=== PATIENT | male | born 1995 | race African-American/Black ===

== ENCOUNTER 2016-09-28 18:30 | Observation (INO) ==
[2016-09-28] MEDS ORDERED: NALOXONE 0.4 MG/ML VIAL IV STA (18:52)
[2016-09-28] MEDS ORDERED: SODIUM CHLORIDE 0.9% 1,000 ML IV STA (18:52)
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
[2016-09-28] MEDS ORDERED: NALOXONE 0.4 MG/ML VIAL ONE (19:15)
--- NOTE | 2016-09-28 19:20 | CT Report ---
CT head/brain wo con Indication: Mental status changes. CT BRAIN WITHOUT CONTRAST DLP: 1073 mGy*cm. One or more of the following dose reduction techniques was used: Automated exposure control, adjustment of the mA and/or kV according the patient size, or use of iterative reconstruction techniques. Comparison: 02/15/2015. Date of admission: 09/28/2016. Technique: Axial noncontrast CT images of the brain were obtained. Findings: No acute hemorrhage, mass or mass effect. Ventricles and sulci are appropriate for age. Schneider-white junction is maintained throughout. No focal bone lesions are shown. There is an old right orbit medial wall blowout fracture, new since 2016. Visualized paranasal sinuses are clear. Impression: Negative CT brain without contrast. Old right orbit medial wall blowout fracture. PROCEDURE INTERPRETED AT [facility] DEPARTMENT OF RADIOLOGY Final Report Signed by: Ministerio Wadsworth M.D.
--- NOTE | 2016-09-28 19:21 | XRay Report ---
XR chest 1V portable Indication: Altered mental status. Chest one view: Comparison 02/15/2015. The heart size and mediastinal contour are normal. The lungs and pleural spaces are clear. Bones are unremarkable. Impression: Negative chest. PROCEDURE INTERPRETED AT [facility] DEPARTMENT OF RADIOLOGY Final Report Signed by: Ministerio Wadsworth M.D.
[2016-09-28 19:26] LABS: Basophils # 0.1 10*3/uL (0.0-0.2); Eosinophils # 0.3 10*3/uL (0.0-0.87); Eosinophils % 5.5 % (0.00-10.9); Hematocrit 40.8 VOL% (42.0-52.0); Hemoglobin 14.1 GM/DL (14.0-18.0); Immature Granulocytes % 0.2 %; Immature Granulocytes Absolute 0.01 #; Lymphocytes # 2.2 10*3/uL (1.4-4.0); Lymphocytes % 37.4 % (21.2-54.2); Mean Corpuscular HGB Conc 34.6 GM/DL (32-36); Mean Corpuscular Hemoglobin 30 PG (27-34); Mean Corpuscular Volume 86.1 FL (87-102); Mean Platelet Volume 9.8 FL (9.6-12.0); Monocytes # 0.6 10*3/uL (0.11-0.8); Monocytes % 10.6 % (1.7-12.7); Neutrophils # 2.7 10*3/uL (1.4-7.4); Neutrophils % 45.3 % (38.7-73.9); Platelet Count 239 T/CUMM (130-400); Red Blood Count 4.74 MC/CUMM (3.8-5.5); Red Cell Distribution Width 13.6 % (9.3-17.3); White Blood Count 5.9 T/CUMM (4-12)
[2016-09-28 19:40] LABS: Apearance,Urine CLEAR (Clear); Bilirubin,Urine Negative (Negative); Blood, Urine Negative (Negative); Glucose,Urine (UA) Negative (Negative); Hyaline Casts,Urine 1 /LPF (0-3); Ketones,Urine Negative (Negative); Mucus,Urine Occasional /LPF (Occasional); Nitrite,Urine Negative (Negative); Protein,Urine Negative; RBC,Urine 1 /HPF (0-4); Squamous Epithelial Cell,Urine Occasional /HPF (0-10); Urine Color Yellow (Yellow); Urine Specific Gravity 1.024 (1.001-1.035); Urine Urobilinogen < 2.0 EU/DL (0.2-1.0); WBC,Urine 1 /HPF (0-6)
[2016-09-28 19:47] LABS: Barbiturates Screen,Urine Negative (Negative); Benzodiazepines Screen,Urine Negative (Negative); Cannabinoid Screen,Urine Positive (Negative); Opiate Screen,Urine Negative (Negative); Phencyclidine Screen,Urine Negative (Negative)
[2016-09-28 19:47] LABS: PT Patient Result 10.8 SECS; Partial Thromboplastin Time 28.6 SECS (0-40)
[2016-09-28 19:48] LABS: Alanine Aminotransferase 25 U/L (16-61); Albumin 3.7 G/DL (3.4-5.0); Alkaline Phosphatase 97 U/L (45-117); Aspartate Amino Transferase 18 U/L (0-37); Blood Urea Nitrogen 10 MG/DL (7-18); Calcium 9.2 MG/DL (8.5-10.1); Glucose 82 MG/DL (74-106); Potassium 3.8 MMOL/L (3.5-5.1); Sodium 143 MMOL/L (136-145); Total Protein 7.3 G/DL (6.4-8.3); Troponin I Only < 0.015 NG/ML (0.00-0.045)
[2016-09-28 19:50] LABS: Ammonia 44 UMOL/L (11-32)
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
[2016-09-28] MEDS ORDERED: ONDANSETRON 4 MG/2 ML VIAL IV PRN (23:02)
[2016-09-28] MEDS ORDERED: ACETAMINOPHEN 325 MG TABLET PO PRN (23:02)
[2016-09-28] MEDS ORDERED: ALBUTEROL 2.5 MG/3 ML NEB RESP TX PRN (23:02)
[2016-09-28] MEDS: SODIUM CHLORIDE 0.9% 1,000 ML IV SCH (23:36)
[2016-09-29 06:03] LABS: Basophils # 0.1 10*3/uL (0.0-0.2); Basophils % 1.2 % (0.0-0.8); Eosinophils # 0.4 10*3/uL (0.0-0.87); Eosinophils % 6.2 % (0.00-10.9); Hematocrit 40.8 VOL% (42.0-52.0); Hemoglobin 14.1 GM/DL (14.0-18.0); Immature Granulocytes % 0.3 %; Immature Granulocytes Absolute 0.02 #; Lymphocytes # 1.9 10*3/uL (1.4-4.0); Mean Corpuscular HGB Conc 34.6 GM/DL (32-36); Mean Corpuscular Hemoglobin 30 PG (27-34); Mean Corpuscular Volume 85.7 FL (87-102); Mean Platelet Volume 10.5 FL (9.6-12.0); Monocytes # 0.5 10*3/uL (0.11-0.8); Monocytes % 8.8 % (1.7-12.7); Neutrophils % 51.5 % (38.7-73.9); Platelet Count 247 T/CUMM (130-400); Red Blood Count 4.76 MC/CUMM (3.8-5.5); Red Cell Distribution Width 13.6 % (9.3-17.3); White Blood Count 5.8 T/CUMM (4-12)
[2016-09-29 06:47] LABS: Magnesium 2.3 MG/DL (1.8-2.4); Potassium 3.8 MMOL/L (3.5-5.1)
[2016-09-29 08:29] VITALS: BP 122/70
[2016-09-29] MEDS: SODIUM CHLORIDE 0.9% 1,000 ML IV SCH (08:35)
[2016-09-29] MEDS ORDERED: OLANZapine 5 MG TABLET PO SCH (09:00)
[2016-09-29] MEDS ORDERED: ENOXAPARIN 40 MG/0.4 ML SYRINGE SUBCUT SCH (09:00)
[2016-09-29] MEDS ORDERED: PANTOPRAZOLE 40 MG TABLET PO SCH (09:00)
[2016-09-29] MEDS ORDERED: KETOROLAC 15 MG/1 ML VIAL IV ONE (10:09)
--- NOTE | 2016-09-29 10:12 | Discharge Summary ---
Hospital Course - Hospital Course Hospital Course: Discharge diagnosis: 1. Multiple substance intoxication The patient presented to the hospital after being found in a parking lot. He was admitted to the hospital to "sleep it off." On the morning after admission , he was awake and conversant. He complained of some chest pain. He does not recall any trauma, but was intoxicated at the time. He cleaned off his breakfast tray. He is ready for discharge. Medication reconciliation has been performed. Regular diet. Activity as tolerated. This note was completed using [employer] voice recognition software. There may be engine oiler errors as a result. Discharge Plan - Discharge Data Disposition: Disch To Home/Self Care Condition at Discharge: Stable Discharge Diet: advance to your usual diet Activity: resume usual activities as tolerated Hygiene: no restrictions Weight Bearing at Discharge: full weight bearing Driving: no restrictions - Discharge Medications Continue OLANZapine [Olanzapine Odt] 10 mg PO DAILY Albuterol Inhaler [Proventil Inhaler] 2 puff INH Q6H PRN PRN Reason: Shortness Of Breath/Wheezing Duloxetine HCl [Duloxetine] 60 mg PO DAILY - Follow Up or Referral - Forms/Instructions Exam - Constitutional Vitals: Period Temp Pulse Resp BP Sys/Fenton Pulse Ox Last 24 Hr 97.0 F-98.0 F 53-92 16-22 93-131/53-80 93-100 Vital signs are noted above. Heart is regular with no murmur. Lungs are clear. No rales. Left anterior chest wall is exquisitely tender to palpation. Abdomen is soft with no mass. He is awake and conversant. Discharge Results Labs on day of discharge: Labs from last 24 hours 09/29/16 09/29/16 09/28/16 05:32 05:32 19:36 WBC 5.8 RBC 4.76 Hgb 14.1 Hct 40.8 L MCV 85.7 L MCH 30 MCHC 34.6 RDW 13.6 Plt Count 247 MPV 10.5 Neut % (Auto) 51.5 Lymph % (Auto) 32.0 [place] % (Auto) 8.8 Eos % (Auto) 6.2 Baso % (Auto) 1.2 H Neut # (Auto) 3.0 Lymph # (Auto) 1.9 [place] # (Auto) 0.5 Eos # (Auto) 0.4 Baso # (Auto) 0.1 Immature Gran % 0.3 Nucleated RBC % 0.0 Immature Gran # 0.02 Nucleated RBCs # 0.00 Immature Plt Fraction 0.0 INR PT Patient/Control Mix Circ Anticoag PTT Sodium 143 Potassium 3.8 Chloride 109 H Carbon Dioxide 28 Anion Gap 9.8 BUN 7 Creatinine 0.80 GFR Calculation 144 BUN/Creatinine Ratio 8.00 Glucose 82 Calculated Osmolality 281.0 Calcium 9.0 Magnesium 2.3 Total Bilirubin AST ALT Alkaline Phosphatase Ammonia Troponin I Total Protein Albumin Globulin Albumin/Globulin Ratio Urine Color Urine Appearance Urine pH Ur Specific [place] Urine Protein Urine Glucose (UA) Urine Ketones Urine Blood Urine Nitrate Urine Bilirubin Urine Urobilinogen Urine Leukocytes Urine RBC Urine WBC Ur Squamous Epith Cells Hyaline Casts Urine Mucus Ur Culture Indicated? Urine Opiates Screen Negative Acetaminophen Ur Barbiturates Screen Negative Ur Phencyclidine Scrn Negative U Amphetamine/Methamph Positive H U Benzodiazepines Scrn Negative U Cocaine Metab Screen Negative U Cannabinoids Screen Positive H Serum Alcohol 09/28/16 09/28/16 09/28/16 19:36 19:15 19:15 WBC RBC Hgb Hct MCV MCH MCHC RDW Plt Count MPV Neut % (Auto) Lymph % (Auto) [place] % (Auto) Eos % (Auto) Baso % (Auto) Neut # (Auto) Lymph # (Auto) [place] # (Auto) Eos # (Auto) Baso # (Auto) Immature Gran % Nucleated RBC % Immature Gran # Nucleated RBCs # Immature Plt Fraction INR PT Patient/Control Mix Circ Anticoag PTT Sodium 143 Potassium 3.8 Chloride 108 H Carbon Dioxide 29 Anion Gap 9.8 BUN 10 Creatinine 0.80 GFR Calculation 144 BUN/Creatinine Ratio 12.00 Glucose 82 Calculated Osmolality 282.0 Calcium 9.2 Magnesium Total Bilirubin 0.50 AST 18 ALT 25 Alkaline Phosphatase 97 Ammonia 44 H Troponin I < 0.015 Total Protein 7.3 Albumin 3.7 Globulin 3.6 H Albumin/Globulin Ratio 1.0 L Urine Color Yellow Urine Appearance Clear Urine pH 5.0 Ur Specific [place] 1.024 Urine Protein Negative Urine Glucose (UA) Negative Urine Ketones Negative Urine Blood Negative Urine Nitrate Negative Urine Bilirubin Negative Urine Urobilinogen < 2.0 H Urine Leukocytes Negative Urine RBC 1 Urine WBC 1 Ur Squamous Epith Cells Occasional Hyaline Casts 1 Urine Mucus Occasional Ur Culture Indicated? Not indicated Urine Opiates Screen Acetaminophen < 2.0 L Ur Barbiturates Screen Ur Phencyclidine Scrn U Amphetamine/Methamph U Benzodiazepines Scrn U Cocaine Metab Screen U Cannabinoids Screen Serum Alcohol < 15 L 09/28/16 09/28/16 19:15 19:15 WBC 5.9 RBC 4.74 Hgb 14.1 Hct 40.8 L MCV 86.1 L MCH 30 MCHC 34.6 RDW 13.6 Plt Count 239 MPV 9.8 Neut % (Auto) 45.3 Lymph % (Auto) 37.4 [place] % (Auto) 10.6 Eos % (Auto) 5.5 Baso % (Auto) 1.0 H Neut # (Auto) 2.7 Lymph # (Auto) 2.2 [place] # (Auto) 0.6 Eos # (Auto) 0.3 Baso # (Auto) 0.1 Immature Gran % 0.2 Nucleated RBC % 0.0 Immature Gran # 0.01 Nucleated RBCs # 0.00 Immature Plt Fraction 0.0 INR 1.0 PT Patient/Control Mix 10.8 Circ Anticoag PTT 28.6 Sodium Potassium Chloride Carbon Dioxide Anion Gap BUN Creatinine GFR Calculation BUN/Creatinine Ratio Glucose Calculated Osmolality Calcium Magnesium Total Bilirubin AST ALT Alkaline Phosphatase Ammonia Troponin I Total Protein Albumin Globulin Albumin/Globulin Ratio Urine Color Urine Appearance Urine pH Ur Specific [place] Urine Protein Urine Glucose (UA) Urine Ketones Urine Blood Urine Nitrate Urine Bilirubin Urine Urobilinogen Urine Leukocytes Urine RBC Urine WBC Ur Squamous Epith Cells Hyaline Casts Urine Mucus Ur Culture Indicated? Urine Opiates Screen Acetaminophen Ur Barbiturates Screen Ur Phencyclidine Scrn U Amphetamine/Methamph U Benzodiazepines Scrn U Cocaine Metab Screen U Cannabinoids Screen Serum Alcohol DS: Provider Date of admission: 09/28/16 20:37 Primary care physician: . No PCP Attending physician on admission: José Luis Boateng MD Consults: 09/29/16 01:48 Consult to Dietitian [CONS] Routine Reason for Dietitian: Dietary Consult Consult Comment: Reportedly homeless per ER staff 09/29/16 03:59 Consult to Dietitian [CONS] Routine Reason for Dietitian: Dietary Consult Discharging clinician: Bal Perez MD Expected date of discharge: 09/29/16
== END 2016-09-29 11:40 | disposition home or self-care (01) ==
LOC: EDUNIT# → EDBD → N.ED 18:30 → N.EDINP 18:30 → SUATTDRO 20:37 → N.4E 21:39
PROVIDERS: ADMIT Family Medicine; ATTEND Internal Medicine Geriatric Medicine

== ENCOUNTER 2016-10-27 01:54 | Observation (INO) ==
[2016-10-27] MEDS ORDERED: AMMONIA INHALANT 1 EACH AMP INH ONE (02:06)
[2016-10-27] MEDS ORDERED: ALBUTEROL NEB SOLN 5 MG/ML 20 ML/BOTTLE CONT NEB STA (02:11)
[2016-10-27] MEDS ORDERED: SODIUM CHLORIDE 0.9% 1,000 ML IV STA (02:11)
[2016-10-27] MEDS ORDERED: methylPREDNISolone SOD SUC 125 MG/2 ML VIAL IV STA (02:11)
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
[2016-10-27 02:54] LABS: Basophils # 0.1 10*3/uL (0.0-0.2); Basophils % 0.8 % (0.0-0.8); Eosinophils # 0.5 10*3/uL (0.0-0.87); Eosinophils % 7.6 % (0.00-10.9); Hematocrit 41.2 VOL% (42.0-52.0); Hemoglobin 14.7 GM/DL (14.0-18.0); Immature Granulocytes % 0.3 %; Immature Granulocytes Absolute 0.02 #; Lymphocytes % 30.3 % (21.2-54.2); Mean Corpuscular HGB Conc 35.7 GM/DL (32-36); Mean Corpuscular Hemoglobin 30 PG (27-34); Mean Corpuscular Volume 83.6 FL (87-102); Mean Platelet Volume 10.8 FL (9.6-12.0); Monocytes # 0.6 10*3/uL (0.11-0.8); Monocytes % 9.6 % (1.7-12.7); Neutrophils # 3.4 10*3/uL (1.4-7.4); Neutrophils % 51.4 % (38.7-73.9); Platelet Count 272 T/CUMM (130-400); Red Blood Count 4.93 MC/CUMM (3.8-5.5); Red Cell Distribution Width 13.4 % (9.3-17.3); White Blood Count 6.6 T/CUMM (4-12)
[2016-10-27 02:58] LABS: Apearance,Urine CLEAR (Clear); Bilirubin,Urine Negative (Negative); Blood, Urine Negative (Negative); Glucose,Urine (UA) Negative (Negative); Ketones,Urine 5 mg/dL (Negative); Mucus,Urine Occasional /LPF (Occasional); Nitrite,Urine Negative (Negative); Protein,Urine Negative; RBC,Urine 2 /HPF (0-4); Urine Color Yellow (Yellow); Urine Specific Gravity 1.032 (1.001-1.035); WBC,Urine 1 /HPF (0-6)
[2016-10-27 02:59] LABS: Barbiturates Screen,Urine Negative (Negative); Benzodiazepines Screen,Urine Negative (Negative); Cannabinoid Screen,Urine Positive (Negative); Opiate Screen,Urine Negative (Negative); Phencyclidine Screen,Urine Negative (Negative)
[2016-10-27 03:00] LABS: Ammonia 84 UMOL/L (11-32)
[2016-10-27 03:06] LABS: Alanine Aminotransferase 57 U/L (16-61); Albumin 3.6 G/DL (3.4-5.0); Alkaline Phosphatase 131 U/L (45-117); Aspartate Amino Transferase 46 U/L (0-37); Blood Urea Nitrogen 9 MG/DL (7-18); CKMB % 1.2 %; Calcium 9.1 MG/DL (8.5-10.1); Glucose 162 MG/DL (74-106); Magnesium 2.3 MG/DL (1.8-2.4); Osmolality,Calculated 277.7 MOS/KG (273-304); Potassium 3.4 MMOL/L (3.5-5.1); Sodium 138 MMOL/L (136-145); Total Protein 7.6 G/DL (6.4-8.3); Troponin I Only < 0.015 NG/ML (0.00-0.045)
[2016-10-27] MEDS ORDERED: ONDANSETRON 4 MG/2 ML VIAL IV PRN (03:52)
--- NOTE | 2016-10-27 03:52 | EKG Report ---
Stationary ECG Study [facility] ER Test Date: 10/27/2016 3:51:14 AM Pat Name: BARBARA JANE Department: Room: Gender: M Director Consumer Affairs: : 1995 Requested by: Colin Shine Order Number: [id number] Reading MD: SIVA MCMAHON Intervals [place] Rate: 83 P: 54 MN: 154 QRS: 68 QRSD: 114 T: 80 QT: 390 QTc: 430 Interpretive Statements SINUS RHYTHM WITH SINUS ARRHYTHMIA at 83 bpm INCOMPLETE RIGHT BUNDLE BRANCH BLOCK NONSPECIFIC ST ELEVATION Electronically Signed On 10-30-16 12:01:52 CDT by SIVA MCMAHON [email or web address]
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
[2016-10-27] MEDS: SODIUM CHLORIDE 0.9% 1,000 ML IV SCH ×2 (06:35→16:48)
--- NOTE | 2016-10-27 07:30 | CT Report ---
CT head/brain wo con Indication: Altered mental status Comparison: CT brain dated September 28, 2016 Technique: Multiple axial tomographic images of the brain were obtained without the use of intravenous contrast. Findings: Midline structures are nondisplaced. There is no convincing evidence of acute intracranial hemorrhage . No convincing evidence of hydrocephalus. Old defect involving the medial wall the right orbit. The visualized paranasal sinuses and bilateral mastoid air cells are predominantly clear. IMPRESSION: No acute intracranial abnormality demonstrated. The CT exam was performed using one or more of the following dose reduction techniques: Automated exposure control, adjustment of the mA and/or kV according to patient size, or use of iterative reconstruction technique. PROCEDURE INTERPRETED AT [facility] DEPARTMENT OF RADIOLOGY Final Report Signed by: Dr Bassem Jaramillo
--- NOTE | 2016-10-27 07:59 | XRay Report ---
XR chest 1V portable Indication: Cough, wheezing Comparison: Chest x-ray dated September 28, 2016 Technique: Single frontal view of the chest. Findings: Heart size within normal limits. No focal consolidation, pleural effusion, or pneumothorax. Visualized osseous and surrounding soft tissue structures demonstrate no acute abnormality. IMPRESSION: No acute cardiopulmonary process demonstrated. PROCEDURE INTERPRETED AT [facility] DEPARTMENT OF RADIOLOGY Final Report Signed by: Dr Bassem Jaramillo
[2016-10-27 08:42] LABS: Albumin 3.2 G/DL (3.4-5.0); Bilirubin,Total 0.5 MG/DL (0.2-1.0); Calcium 8.7 MG/DL (8.5-10.1); Osmolality,Calculated 279.4 MOS/KG (273-304); Potassium 3.1 MMOL/L (3.5-5.1); Total Protein 6.8 G/DL (6.4-8.3)
[2016-10-27] MEDS: OLANZapine 5 MG TABLET PO SCH (10:11)
[2016-10-27] MEDS: PANTOPRAZOLE 40 MG TABLET PO SCH (10:11)
[2016-10-27] MEDS: ENOXAPARIN 40 MG/0.4 ML SYRINGE SUBCUT SCH (10:11)
--- NOTE | 2016-10-27 17:50 | Hospitalist Progress Note ---
Hospitalist: Subjective Interval history: Patient with history of abuse admitted with decreased mentation. He is drowsy but arousable. Continue to monitor. Exam - Constitutional Vitals: Period Temp Pulse Resp BP Sys/Fenton Pulse Ox Last 24 Hr 97.1 F-98.7 F 72-95 14-21 109-162/39-75 91-100 Results - Labs CBC & BMP: 10/27/16 02:18 10/27/16 07:17 Quality Measures - Stroke Symptom Onset Unknown: No
[2016-10-28] MEDS: SODIUM CHLORIDE 0.9% 1,000 ML IV SCH (04:30)
[2016-10-28] MEDS: ENOXAPARIN 40 MG/0.4 ML SYRINGE SUBCUT SCH (09:35)
[2016-10-28] MEDS: PANTOPRAZOLE 40 MG TABLET PO SCH (09:35)
[2016-10-28] MEDS: OLANZapine 5 MG TABLET PO SCH (09:35)
[2016-10-28] MEDS ORDERED: POTASSIUM CHLORIDE 20 MEQ TABLET PO ONE (09:42)
--- NOTE | 2016-10-28 09:42 | Discharge Summary ---
Hospital Course - Hospital Course Hospital Course: This is a 21-year-old male that presented to the ED at [facility] on the morning of October 27, 2016 for the evaluation of altered mental status. The patient has a medical history significant for anxiety, schizophrenia, polysubstance abuse, and asthma. No surgical history was provided at the time of ED presentation. Apparently, the patient was observed lying in the parking lot at the local [facility]. The police were summoned to investigate the patient's situation The police proceeded to notify EMS for further evaluation. The patient was subsequently transported to [facility] for further evaluation. Patient was assessed at the time of ED presentation. At the time of ED presentation, the patient was grossly altered and only respond to painful stimulation. In addition, the patient was noted to have abnormal movements at the time of arrival. Labs were obtained which were significant for hematocrit 41.2, potassium 3.4, glucose 162, AST 46, alkaline phosphatase 131, ammonia level 84, total creatinine kinase 560, and ammonia at 84. Urine toxicology was positive for cannabinoids and methamphetamines. Chest x-ray was essentially unremarkable for any acute cardiopulmonary process. CT head was unremarkable for the presence of any acute intracranial abnormalities. The patient was subsequently admitted to the hospitalist service for continuation of care The patient was aggressively rehydrated and electrolyte deficits were corrected. The patient's condition slowly improved. The patient's condition is stable. He has not experienced any significant overnight events. Today, we feel that he is indeed appropriate for discharge to follow-up with his primary care physician as indicated. In addition, we spoke with the patient in great detail regarding the merits of refraining from illicit drug use. Patient verbalizes understanding of instructions however reports no immediate plans to refrain from these dangerous activities. - Time spent with patient Time with patient DS: Less than 30 minutes Diagnosis - Discharge Diagnosis (1) Altered mental status Status: Resolved (2) Decreased level of consciousness Status: Resolved (3) Intoxication with cannabis Status: Resolved Specialty Discharge - Follow Up or Referrals - Speciality Discharge Instructions Hospitalist Instructions: The patient is instructed to follow-up with his primary care physician in 5-7 days after discharge. The patient has been instructed to refrain from illicit drug use. Discharge Plan - Discharge Data Disposition: Disch To Home/Self Care Condition at Discharge: Stable Discharge Diet: advance to your usual diet Activity: resume usual activities as tolerated, other (Refrain from illicit drug use) Hygiene: no restrictions Weight Bearing at Discharge: full weight bearing Driving: no restrictions Contact your physician if you experience:: fever over 101, Difficulty voiding, Redness or swelling, Nausea/Vomiting, Shortness of breath, Bleeding - Discharge Medications New OLANZapine TAB [ZyPREXA Tab] 10 mg PO DAILY #30 tablet Continue Duloxetine HCl [Duloxetine] 60 mg PO DAILY #30 OLANZapine [Olanzapine Odt] 10 mg PO DAILY #30 Albuterol Inhaler [Proventil Inhaler] 2 puff INH Q6H PRN #1 PRN Reason: Shortness Of Breath/Wheezing - Follow Up or Referral - Forms/Instructions Exam - Constitutional Vitals: Period Temp Pulse Resp BP Sys/Fenton Pulse Ox Last 24 Hr 97.2 F-98.3 F 57-90 14-22 114-142/53-77 18-100 General appearance: normal weight, no acute distress, disheveled - Head Head exam: Present: normal inspection, normocephalic - Eye Eye exam: Present: EOMI. Absent: conjunctival injection Pupils: Present: SANDRO, normal accommodation - ENT ENT exam: Present: normal exam, normal external ear exam, normal oropharynx - Neck Neck exam: Present: normal inspection. Absent: lymphadenopathy, meningismus, tenderness, thyromegaly - Respiratory Respiratory exam: Present: clear to auscultation bilaterally. Absent: rales, rhonchi, stridor, wheezes - Cardiovascular Cardiovascular exam: Present: regular rate and rhythm. Absent: carotid bruit, diastolic murmur, gallop, JVD, rubs, systolic murmur - GI/Abdominal GI/Abdominal exam: Present: normal bowel sounds, soft - Extremities Exam Extremities exam: Present: normal inspection, normal capillary refill, full ROM. Absent: edema - Back Exam Back exam: Present: normal inspection - Neurological Exam Neurological exam: Present: alert, oriented X3, CN II-XII intact - Psychiatric Psychiatric exam: Present: normal affect, normal mood - Skin Skin exam: Present: normal color, warm, dry Discharge Results Procedures and tests throughout hospitalization: Pending Orders 10/28/16 09:17 BMP w/ Mg [Basic Metabolic Panel w/Mg] Stat Labs on day of discharge: Labs were significant for magnesium of 1.7 and chloride of 108. The magnesium deficit was corrected. DS: Provider Date of admission: 10/27/16 03:52 Primary care physician: . No PCP Attending physician on admission: Bibi Marquez MD Consults: 10/27/16 03:53 Consult to Case Mgmt/Social Srvs [CONS] Routine Reason for Case Mgmt/Social Srvs: Discharge Planning Discharging clinician: Zora ePrez INTERIOR DESIGN PROFESSOR
[2016-10-28 09:59] LABS: Calcium 8.9 MG/DL (8.5-10.1); Magnesium 1.7 MG/DL (1.8-2.4); Osmolality,Calculated 275.4 MOS/KG (273-304); Potassium 4.1 MMOL/L (3.5-5.1)
[2016-10-28] MEDS ORDERED: MAGNESIUM OXIDE 400 MG TABLET PO ONE (11:25)
[2016-10-28 11:42] VITALS: BP 115/53
== END 2016-10-28 15:50 | disposition home or self-care (01) ==
LOC: EDUNIT# → EDBD → N.ED 01:54 → N.2E 01:54 → SUATTDRO 04:47 → N.2E 05:36
PROVIDERS: ADMIT Family Medicine; ATTEND Hospitalist